=== PATIENT | male | born 1950 | race Caucasian/White ===

== ENCOUNTER 2018-01-20 07:09 | Outpatient (CLI) | payer OTHER ==
--- NOTE | 2018-01-21 01:24 | MRI ---
EXAM: MRI cervical spine without IV contrast. DATE: 01/20/2018. HISTORY: Cervicalgia the. TECHNIQUE: Sagittal and axial T1W and T2W sequences of the cervical spine along with sagittal IR and coronal T2W sequences were obtained using 1.5 Coco magnet. No IV contrast. COMPARISON: Chest x-ray 16 December 2009. FINDINGS: There is no thoracic scoliosis. Previous anterior discectomy and fusion are evident at C6 -7. A 1.8 mm anterior subluxation of C5 relative to C4 and 1.3 mm anterolisthesis of C5 relative to C6 are observed. No other subluxation, acute fracture, osseous malignancy, or jumped facet is appare nt. Cervical vertebra are normal in height. T2W/T1W bone marrow signal is overall normal. T2W/T1W bright, 6.3 mm focus in the right side of the C2 body is likely benign hemangioma.. Small anterior o steophytes and moderate disc space narrowing detected at C4-5. Remaining nonfused intervertebral dis cs are normal in height. Cervical and upper thoracic spinal cord reveals no syrinx, cord edema, myel omalacia, or neoplasm. Visible brainstem is normal. Cerebellar tonsils extend near the inferior margin of the foramen magnu m. There is no Chiari 1 malformation. Pituitary gland is small in size, with CSF filling part of th e pituitary fossa. No mastoid disease is detected. No thyroid, submandibular, or parotid gland neop lasm is apparent. Trachea, larynx, and epiglottis are normal. No suspicious neck mass, cervical lym phadenopathy, apical lung mass, or pneumonia is demonstrated. Segmental analysis: C2-3: Normal. C3-4: Minor posterior disc/osteophyte complex (1.2 mm AP midline, 1.4 mm AP left paracentral) does n ot cause cord compression. Canal is 10.9 mm AP. Minimal left foraminal narrowing is due to uncinate hypertrophy. C4-5: Minor anterior subluxation of C5, pseudodisc bulge, and mild ligamentum flavum hypertrophy are present. Canal is 8.2 mm AP. Mild right and moderate left foraminal stenoses are due to uncinate h ypertrophy and mild facet disease. C5-6: Minor anterolisthesis of C5 and pseudodisc bulge do not cause cord compression. Canal is 12.5 mm AP. Each foramen is patent. There is mild bilateral facet arthropathy. C6-7: S/P ACDF. Canal is 11.7 mm AP. Each foramen is patent. C7-T1: Normal. T1-2: Normal. IMPRESSIONS: 1. S/P ACDF at C6-7. Stable fusion. 2. C-spine mild spondylosis, facet arthropathy, and DDD. 3. Mild right to moderate left foraminal stenoses at C4-5. 4. Mild central canal stenosis at C4-5. 5. Benign hemangioma in the C2 body. 6. Small pituitary gland - partially empty sella.
== END 2018-01-20 07:10 | disposition home or self-care (01) ==
LOC: RAD 07:09
PROVIDERS: ATTEND Pain Medicine Interventional Pain Medicine
DX: M54.2 Cervicalgia (principal); M47.812 Spondylosis without myelopathy or radiculopathy, cervical region; M47.813 Spondylosis without myelopathy or radiculopathy, cervicothoracic region; R51 Headache